=== PATIENT | male | born 1980 | race Caucasian/White ===

== ENCOUNTER 2024-05-25 12:18 | Emergency (ER) | payer BC, SELFPAY ==
[2024-05-25 12:28] VITALS: BP 188/120
[2024-05-25 13:02] LABS: % Basophils 0.5 % (0-2); % Eosinophils 0.2 % (0-6); % Immature Granulocytes 0.3 % (0-0.5); % Monocytes 7.7 % (1.7-9.3); % Neutrophils 68.3 % (42.2-75.2); Absolute Monocytes 0.7 10^3/uL (0.1-0.6); Absolute Neutrophils 5.9 10^3/uL (1.4-6.5); Hematocrit 41.4 % (39.0-52.0); Hemoglobin 14.7 g/dL (13.0-18.0); Mean Corp Hgb Conc. 35.5 g/dL (33.0-37.0); Mean Corpuscular Hgb 32.2 pg (27.0-31.0); Mean Corpuscular Volume 90.8 fL (80.0-94.0); Mean Platelet Volume 9.2 fL (7.4-10.4); Nucleated Red Blood Cells % 0 % (-); Platelet Count 239 10^3/uL (130-400); Red Blood Cell Count 4.56 10^6/uL (4.70-6.10); Red Cell Dist. Width 12.1 % (11.5-14.5); White Blood Cell Count 8.7 10^3/uL (4.8-10.8)
[2024-05-25 13:22] LABS: Troponin I < 0.012 ng/ml
[2024-05-25 13:26] LABS: ALT (SGPT) 50 U/L (0-50); AST (SGOT) 38 U/L (17-59); Albumin 4.4 g/dl (3.5-5.0); Alkaline Phosphatase 50 U/L (38-126); Blood Urea Nitrogen 30 mg/dl (9-20); Calcium 9.2 mg/dl (8.4-10.2); Carbon Dioxide 27 mmol/L (22-30); Chloride 97 mmol/L (98-107); Glucose 156 mg/dl (70-99); Potassium 4.3 mmol/L (3.5-5.1); Sodium 132 mmol/L (135-145); Total Bilirubin 0.8 mg/dl (0.2-1.3); Total Protein 6.9 g/dl (6.3-8.2); eGFR > 60.00
--- NOTE | 2024-05-25 16:00 | ED.GENMED ---
History of Present Illness
<Alla Pompa PA-C - Last Filed: 05/25/24 18:21>
General
Chief Complaint: Blood Pressure Problem
Source: patient
Exam Limitations: none
Time Seen by Provider: 05/25/24 15:47
Nursing documentation reviewed up to this point in time: agreed with
History of Present Illness
History of Present Illness:
44-year-old male with a past medical history of hypertension, hyperlipidemia, anxiety presents emergency department today with concerns of persistent hypertension. Patient reports that he has had associated on and off chest pain, mild headaches,
and numbness and tingling in his bilateral lower extremities. He denies back pain. He denies difficulty with ambulation. Patient states that started having issues with his blood pressure around a month ago at his primary care provider started him
on valsartan. patient reports that his blood pressure was persistently elevated and so his PCP upped his dose of valsartan. Again, his blood pressure was not improving so his doctor added hydrochlorothiazide to the regimen, 25 mg once a day 2
weeks or so ago. Patient states that he has been checking his blood pressure daily in the morning and notes that he has remained in the 180s over 90s. Patient is never seen a medical administrative specialist for this. Patient did not take his blood pressure
medication today because he states that it does not work.
Review of Systems
<Alla Pompa PA-C - Last Filed: 05/25/24 18:21>
Review of Systems
All Other Systems: ROS reviewed and negative except as documented in HPI and ROS
Phy Exam
<Alla Pompa PA-C - Last Filed: 05/25/24 18:21>
Physical Exam
Physical Exam:
General: Patient is well appearing and in no acute distress; non-toxic
Skin: Warm and dry, no rashes or lesions
Head: Normocephalic, atraumatic
Eyes: Sclera non-icteric. EOMs intact.
Cardiac: Regular rate and rhythm, no murmurs
Peripheral Vascular: No lower extremity swelling or edema
Pulm: Normal respiratory effort, no wheezes, rales, rhonchi
Musculoskeletal: 5/5 strength in bilateral lower extremities
Neuro: CN II-XII intact, no focal neurologic deficits.
Psychiatric: Appropriate mood and affect.
Course
<Alla Pompa PA-C - Last Filed: 05/25/24 18:21>
Orders/Labs/Results
Orders:
Orders
05/25/24 12:32
Electrocardiogram (*1) Urgent
Reason for Study: Hypertension, Benign
EKG- Treatment ONCE
05/25/24 12:41
Complete Blood Count/With Diff Urgent
Comprehensive Metabolic Panel Urgent
Troponin I Urgent
05/25/24 15:48
Electrocardiogram (*1) Urgent
Reason for Study: Chest Pain
Abnormal Lab Results
05/25/24
12:41
RBC 4.56 L 10^6/uL
(4.70-6.10)
MCH 32.2 H pg
(27.0-31.0)
Absolute Monos (auto) 0.7 H 10^3/uL
(0.1-0.6)
Sodium 132 L mmol/L
(135-145)
Chloride 97 L mmol/L
(98-107)
BUN 30 H mg/dl
(9-20)
Glucose 156 H mg/dl
(70-99)
05/25/24 12:41
05/25/24 12:41
Vital Signs
Initial and Last Documented VS:
Initial Vital Signs
Temp Pulse Resp BP Pulse Ox
36.8 C 108 16 188/120 98
05/25/24 12:28 05/25/24 12:28 05/25/24 12:28 05/25/24 12:28 05/25/24 12:28
Last Documented Vital Signs
Temp Pulse Resp BP Pulse Ox
36.8 C 96 18 185/113 98
05/25/24 12:28 05/25/24 16:17 05/25/24 16:17 05/25/24 16:17 05/25/24 16:17
<Sukhdev Infante MD - Last Filed: 05/25/24 20:35>
Orders/Labs/Results
Orders:
Orders
05/25/24 12:32
Electrocardiogram (*1) Urgent
Reason for Study: Hypertension, Benign
EKG- Treatment ONCE
05/25/24 12:41
Complete Blood Count/With Diff Urgent
Comprehensive Metabolic Panel Urgent
Troponin I Urgent
05/25/24 15:48
Electrocardiogram (*1) Urgent
Reason for Study: Chest Pain
Abnormal Lab Results
05/25/24
12:41
RBC 4.56 L 10^6/uL
(4.70-6.10)
MCH 32.2 H pg
(27.0-31.0)
Absolute Monos (auto) 0.7 H 10^3/uL
(0.1-0.6)
Sodium 132 L mmol/L
(135-145)
Chloride 97 L mmol/L
(98-107)
BUN 30 H mg/dl
(9-20)
Glucose 156 H mg/dl
(70-99)
05/25/24 12:41
05/25/24 12:41
Vital Signs
Initial and Last Documented VS:
Initial Vital Signs
Temp Pulse Resp BP Pulse Ox
36.8 C 108 16 188/120 98
05/25/24 12:28 05/25/24 12:28 05/25/24 12:28 05/25/24 12:28 05/25/24 12:28
Last Documented Vital Signs
Temp Pulse Resp BP Pulse Ox
36.8 C 96 18 185/113 98
05/25/24 12:28 05/25/24 16:17 05/25/24 16:17 05/25/24 16:17 05/25/24 16:17
[place]olt;Alla Pompa PA-C - Last Filed: 05/25/24 18:21>
MDM/Problems Addressed
Differential Diagnosis Includes:
See below
MDM/Problems Addressed:
NUMBER AND COMPLEXITY OF PROBLEMS ADDRESSED AT THE ENCOUNTER
� Chronic conditions affecting care: Hypertension, anxiety
� Acute Exacerbation and/or Progression of Chronic Illness: Hypertension
� Differential Diagnosis includes: Essential hypertension, alcohol withdrawal, anxiety, renal artery stenosis/kidney disease, sleep apnea
AMOUNT AND/OR COMPLEXITY OF DATA TO BE REVIEWED AND ANALYZED
� I performed an independent evaluation of and my interpretation is:
EKG: normal sinus rhythm with no ischemic changes
Laboratory Studies: renal function intact
Other:
� Review of other/old records: reviewed [facility], no previous ER physician documentation or discharge summaries to
� Clinical information was obtained by an independent historian:
� Prescriptions/Medications Considered but not given: considered dose of ativan here in the ER for potential alcohol withdrawal
� Further testing considered but not performed: n/a
RISK OF COMPLICATIONS AND/OR MORBIDITY OR MORTALITY OF PATIENT MANAGEMENT
� Social determinants of health affecting care:
� Discussion with other providers: ER attending
� Escalation of care including admission/observation vs risk of discharge considered:
44-year-old male past medical history of hypertension presents emergency department today with concerns of persistent hypertension as well as numbness and tingling, intermittent chest pain, and mild headaches for the past week. Patient is concerned
that his high blood pressure is causing the symptoms. Patient states that his primary has been increasing his blood pressure medications and adding new medications to his regimen and he has not been improving. Of note, patient states that he has
been drinking more alcohol recently, he states that he has around 4 beers every other day. Patient states that he did not take his blood pressure medication today because he feels that it does not work. On exam patient is well-appearing in no
acute distress, he has no focal neurologic deficits, he has no chest tenderness to palpation. Doubt ACS, doubt hypertensive emergency/urgency. Suspect uncontrolled essential hypertension with anxiety component, however may possibly represent mild
alcohol withdrawal as well however patient does have the symptoms even while drinking. PAtient stable for discharge does have PCP follow up on the .
<Alla Pompa PA-C - Last Filed: 05/25/24 18:21>
*Pulse Oximetry
Patient hypoxic: no
*Critical Care Note
Total Time (30-74mins, 75-104mins- exclusive of procedures): Not Applicable
ED Attending Note
<Alla Pompa PA-C - Last Filed: 05/25/24 18:21>
-
Portions of this chart may have been created with voice recognition software.� Occasional wrong word or��sound alike� substitutions may have occurred due to the inherent limitations of voice recognition software.
<Sukhdev Infante MD - Last Filed: 05/25/24 20:35>
ED Attending Note
Patient seen and examined by attending physician: Yes
ED Attending Note:
I have seen and evaluated the patient with a [id number] encounter. I have spoken to the advance practicer provider and involved in the medical history, the physical exam, medical decision making.
Evaluation and management service: agree unless noted differently below.
Results interpretation: agree unless noted differently below.
Focused HPI: 44-year-old male with history of hypertension hyperlipidemia presents for hypertension. Patient says that he has been struggling with elevated blood pressure for the past few weeks. Has been following with his primary doctor and is on
ARB and thiazide but blood pressures have still been running high. Patient reports that at varying times of the past few weeks he has had occasional chest pains headaches paresthesias and today blood pressures were in the 180s and he decided he
should come to the ER to be evaluated. At time of my assessment he is asymptomatic. He does admit that over the holidays he has been drinking heavier than usual but has never had issues with alcohol withdrawal in the past and is not a regular
heavy drinker he says.
Physical exam: Awake alert no distress. Hypertensive otherwise normal vitals. No tremor, no diaphoresis. No edema.
Medical Decision Makin-year-old male presents for evaluation of hypertension refractory to outpatient meds. He has had varying complaints over the past few weeks, feels well on my assessment. Labs unremarkable, EKG shows no STEMI, troponin
negative. No signs of hypertensive emergency�no indication for emergent antihypertensive treatment will refer for continued follow-up with his primary care physician. He feels comfortable with this plan.
Discharge Plan
Departure
Patient Disposition: Home (Routine Discharge)
Date of Disposition: 05/25/24
Time of Disposition: 18:14
Patient with high blood pressure during this ER visit?: Yes
Condition: Good
Discharge Problem:
High blood pressure
Instructions: High Blood Pressure (DC), BLOOD PRESSURE
Referrals:
Bryan Camacho DO [Family Provider] -
Activity Restrictions/Additional Instructions:
Please withhold from drinking alcohol for the time being.
Please follow-up with your primary care provider as scheduled on June 06. You may need further workup and adjustment to your blood pressure medications. You may need to see a medical administrative specialist for persistent hypertension
Please return to the emergency department should you experience acute worsening of her symptoms, shortness of, persistent chest pain, lightheadedness, dizziness, syncopal episodes, severe sudden onset headache, any other signs or symptoms worrisome
to you.
Interventions
Interventions:
*Risk Screen - Suicide Last Done: 05/25/24 12:28
*Neglect/Abuse Screening Last Done: 05/25/24 12:28
*Nursing Disposition Last Done: 05/25/24 18:55
ED- Cardiac Assessment Last Done: 05/25/24 16:24
ED- Neurological Assessment Last Done: 05/25/24 16:24
ED- Pulmonary Assessment Last Done: 05/25/24 16:24
Discharge Date and Time
Discharge Date/Time: 05/25/24 18:56
Print Language: IRISH
[2024-05-25 16:16] VITALS: BMI 31.6
[2024-05-25 16:17] VITALS: BP 185/113
== END 2024-05-25 18:56 | disposition home or self-care (01) ==
LOC: EMR 12:18
PROVIDERS: Emergency Medicine; EMERGENCY PHYSICIAN Emergency Medicine; FAMILY PHYSICIAN Family Medicine
DX: I10 Essential (primary) hypertension (principal); R07.89 Other chest pain; R51.9 Headache, unspecified; R20.2 Paresthesia of skin; R20.0 Anesthesia of skin; T46.5X6A Underdosing of other antihypertensive drugs, initial encounter; F41.9 Anxiety disorder, unspecified; E78.5 Hyperlipidemia, unspecified; I70.1 Atherosclerosis of renal artery; G47.30 Sleep apnea, unspecified
CPT/HCPCS: 99284; 80053; 84484; 85025; 93005